=== PATIENT | female | born 1985 | race African-American/Black ===

== ENCOUNTER 2016-06-19 17:56 | Emergency (ER) | payer MEDICAID, OTHER ==
[~2016-06-19] VITALS: Ht 180.3 cm; Wt 84.7 kg
[~2016-06-19 17:56] MED LIST: ASPI325T PO; BACT800T5 PO; CARV3.125 PO; CEPH500C3 PO; CLIN150 PO; CLOP75 PO; HCTZ25 PO; HYDR-3533 PO; LISI20 PO; NITR.4 SL; TRAM50 PO; ZOFR4TAB3 SL
[2016-06-19 18:00] VITALS: BP 212/96; PULSE 96; RESP 18; TEMP 99.5; O2SAT 96
[2016-06-19] MEDS ORDERED: SODIUM CHLOR 0.9% 1000 ML INJ 1,000 ML IV ONE (18:45)
[2016-06-19 18:49] VITALS: O2SAT 99
--- NOTE | 2016-06-19 18:52 | PD ---
HPI Chief Complaint: Cold / Flu Symptoms Time Seen by Provider: 18:35 Travel History International Travel<30 days: No Contact w/Intl Traveler<30days: No Traveled to known affect area: No History of Present Illness HPI 31-year-old female complains of headache, coughing congestion, body ache, fever chills and shortness of breath. Patient states the symptoms started 2 days ago. Patient states that headache is aching headache diffuse over the head. Patient denies any visual change. Patient denies any neck pain. Patient denies any chest pain. Patient states the cough is persistent and mildly productive. Patient states that she has nausea and poor appetite but no vomiting or diarrhea. Patient denies abdominal pain. Patient denies any dysuria or frequency. Patient denies any chance of being . PFSH Past Medical History Heart Rhythm Problems: Yes ("IRREGULAR HEART BEAT") Cancer: Yes Cardiac Catheterization: No Cardiovascular Problems: Yes (HTN, [place], STENTS X 2) High Cholesterol: No Congestive Heart Failure: No Diminished Hearing: No Endocrine: No Gastrointestinal Disorders: Yes GERD: Yes Headaches: Yes Hypertension: Yes (05/31 TAKEN OFF HTN MEDS TO SEE HOW SHE DOES) Immune Disorder: No Musculoskeletal: No Neurologic: No Psychiatric: No Respiratory: Yes (BRONCHITIS) Integumentary: Yes (RECURRING SKIN ABSCESSES) Immunizations Current: Yes Migraines: Yes Myocardial Infarction: Yes : 2 Para: 1 Miscarriage: 0 : 1 Dilation and Curettage (D&C): Yes Past Surgical History Abdominal Surgery: Yes ( 04/18/06) Body Medical Devices: BRONCHITIS Section: Yes Cholecystectomy: Yes Coronary Artery Bypass Graft: No Coronary Stent: Yes (x 2 10/2013) Gynecologic Surgery: Yes (D&C 11/2007) Social History Alcohol Use: Yes (SOCIAL) Tobacco Use: Yes (3 DAILY) Substance Use: Yes (OCC MARIJUANA) Allergies-Medications (Allergen,Severity, Reaction): Coded Allergies: No Known Allergies (Verified , 06/19/16) Reported Meds & Prescriptions Reported Meds & Active Scripts Active Cleocin (Clindamycin HCl) 150 Mg Cap 300 Mg PO Q6 10 Days Zofran ODT (Ondansetron HCl) 4 Mg Tab 4 Mg SL Q6H PRN FOR NAUSEA/VOMITING Lortab 5 mg/325 mg (Hydrocodone/Acetaminophen 5 mg/325 mg) 1 Tab 1 Tab PO Q6H PRN Cleocin (Clindamycin HCl) 150 Mg Cap 300 Mg PO Q6 10 Days Lortab 5 mg/325 mg (Hydrocodone/Acetaminophen 5 mg/325 mg) 1 Tab 1 Tab PO Q6H PRN Ultram (Tramadol HCl) 50 Mg Tab 1 Tab PO Q6 PRN FOR PAIN Keflex (Cephalexin Monohydrate) 500 Mg Cap 500 Mg PO QID 10 Days Bactrim DS (Sulfamethoxazole-Trimethoprim DS) 1 Tab Tab 1 Tab PO BID 10 Days Plavix (Clopidogrel Bisulfate) 75 Mg Tab 75 Mg PO DAILY Prinivil 20 mg (Lisinopril) 20 Mg Tab 20 Mg PO DAILY 30 Days Hydrodiuril (Hydrochlorothiazide) 25 Mg Tab 25 Mg PO DAILY 30 Days Coreg 3.125 mg (Carvedilol) 3.125 Mg Tab 3.125 Mg PO BID 30 Days Aspirin 325 Mg Tab (Aspirin) 325 Mg Tab 325 Mg PO DAILY 365 Days Nitroglycerin 0.4 Mg Subl 0.4 Mg SL DIRECTED PRN use 0.4 mg under the tongue q 5 minutes as needed for chest pain. Go to ER for chest pain unrelieved after 5 minutes. Review of Systems General / Constitutional: No: Fever Eyes: No: Visual changes HENT: Positive: Headaches Cardiovascular: No: Chest Pain or Discomfort Respiratory: Positive: Cough, Shortness of Breath Gastrointestinal: Positive: Nausea, No: Abdominal Pain Genitourinary: No: Dysuria Musculoskeletal: No: Pain Skin: No Rash Neurologic: No: Weakness Psychiatric: No: Depression Endocrine: No: Polydipsia Hematologic/Lymphatic: No: Easy Bruising Physical Exam Narrative GENERAL: Well-nourished, well-developed patient. SKIN: Warm and dry. HEAD: Normocephalic. EYES: No scleral icterus. No injection or drainage. NECK: Supple, trachea midline. No JVD or lymphadenopathy. CARDIOVASCULAR: Regular rate and rhythm without murmurs, gallops, or rubs. RESPIRATORY: Breath sounds equal bilaterally. No accessory muscle use. GASTROINTESTINAL: Abdomen soft, non-tender, nondistended. MUSCULOSKELETAL: No cyanosis, or edema. BACK: Nontender without obvious deformity. No CVA tenderness. Neurologic exam normal. Data Data Last Documented VS Vital Signs Date Time Temp Pulse Resp B/P Pulse Ox O2 Delivery O2 Flow Rate FiO2 06/19/16 18:00 99.5 96 18 212/96 96 [facility] Medical Decision Making Medical Screen Exam Complete: Yes Emergency Medical Condition: Yes Differential Diagnosis Differential diagnosis including viral syndrome, bronchitis, pneumonia, dehydration, electrolyte imbalance. Narrative Course 31-year-old female with headache, fever chills, coughing congestion, shortness of breath. Normal saline solution 1 L IV bolus. Barron Bhatti MD Jun 19, 2016 18:52
--- NOTE | 2016-06-19 19:19 | PD ---
Physical Exam Narrative General: The patient is a well-developed well-nourished female in no acute distress Head and Neck exam: Head is normocephalic atraumatic. Eyes: EOMI, pupils are equal round and reactive to light. Nose: Midline septum with erythematous edematous nasal mucosa and a yellow nasal discharge. Mouth: Dentition unremarkable. Moist mucus membranes. Posterior oropharynx is mildly erythematous. No tonsillar hypertrophy. Uvula midline. Airway patent. Neck: No palpable lymphadenopathy. No nuchal rigidity. No thyromegaly. Cardiovascular: Regular rate and rhythm without murmurs, gallops, or rubs. Lungs: Soft expiratory wheezes are audible in the left lung field greater than the right. No rhonchi or crackles. The patient has an occasional dry cough noted on exam. Abdomen: Soft, without tenderness to palpation in all 4 quadrants of the abdomen. No guarding, rebound, or rigidity. Normal bowel sounds are audible. Extremities: No clubbing, cyanosis, or edema. 2+ pulses in all 4 extremities. No calf tenderness on palpation. Neurologic Exam: Grossly nonfocal. Skin Exam: No rash noted. Intact skin that is warm and dry. Data Data Last Documented VS Vital Signs Date Time Temp Pulse Resp B/P Pulse Ox O2 Delivery O2 Flow Rate FiO2 06/19/16 19:58 92 18 183/78 97 Room Air 06/19/16 18:00 99.5 Orders Complete Blood Count With Diff (06/19/16 18:40) Comprehensive Metabolic Panel (06/19/16 18:40) Urinalysis - C+S If Indicated (06/19/16 18:40) Influenzae A/B Antigen (06/19/16 18:40) Chest, Single Ap (06/19/16 18:40) Iv Access Insert/Monitor (06/19/16 18:40) Ecg Monitoring (06/19/16 18:40) Oximetry (06/19/16 18:40) Sodium Chlor 0.9% 1000 Ml Inj (Ns 1000 M (06/19/16 18:45) Albuterol-Ipratropium Neb (Duoneb Neb) (06/19/16 19:30) Potassium Chloride (Kcl) (06/19/16 22:15) Labs Laboratory Tests Test 06/19/16 06/19/16 19:50 20:47 Urine Color YELLOW Urine Turbidity CLEAR Urine pH 7.5 Urine Specific [place] 1.015 Urine Protein NEG mg/dL Urine Glucose (UA) NEG mg/dL Urine Ketones NEG mg/dL Urine Occult Blood MOD Urine Nitrite NEG Urine Bilirubin NEG Urine Urobilinogen 2.0 MG/DL Urine Leukocyte Esterase NEG Urine RBC 100 /hpf Urine WBC LESS THAN 1 /hpf Urine Squamous Epithelial 1 /hpf Cells Urine Mucus FEW /lpf Microscopic Urinalysis Comment CULT NOT INDICATED White Blood Count 8.9 TH/MM3 Red Blood Count 3.74 MIL/MM3 Hemoglobin 12.2 GM/DL Hematocrit 34.6 % Mean Corpuscular Volume 92.7 FL Mean Corpuscular Hemoglobin 32.7 PG Mean Corpuscular Hemoglobin 35.3 % Concent Red Cell Distribution Width 12.7 % Platelet Count 248 TH/MM3 Mean Platelet Volume 8.3 FL Neutrophils (%) (Auto) 48.0 % Lymphocytes (%) (Auto) 36.0 % Monocytes (%) (Auto) 13.0 % Eosinophils (%) (Auto) 2.2 % Basophils (%) (Auto) 0.8 % Neutrophils # (Auto) 4.3 TH/MM3 Lymphocytes # (Auto) 3.2 TH/MM3 Monocytes # (Auto) 1.2 TH/MM3 Eosinophils # (Auto) 0.2 TH/MM3 Basophils # (Auto) 0.1 TH/MM3 CBC Comment DIFF FINAL Differential Comment Sodium Level 141 MEQ/L Potassium Level 3.1 MEQ/L Chloride Level 108 MEQ/L Carbon Dioxide Level 24.6 MEQ/L Anion Gap 8 MEQ/L Blood Urea Nitrogen 6 MG/DL Creatinine 0.90 MG/DL Estimat Glomerular Filtration 88 ML/MIN Rate Random Glucose 99 MG/DL Calcium Level 8.0 MG/DL Total Bilirubin 0.4 MG/DL Aspartate Amino Transf 10 U/L (AST/SGOT) Alanine Aminotransferase 15 U/L (ALT/SGPT) Alkaline Phosphatase 40 U/L Total Protein 6.4 GM/DL Albumin 3.5 GM/DL [facility] Medical Record Reviewed: Yes Supervised Visit with LAURA: No Interpretation(s) Laboratory Tests Test 06/19/16 06/19/16 19:50 20:47 Urine Color YELLOW Urine Turbidity CLEAR Urine pH 7.5 Urine Specific [place] 1.015 Urine Protein NEG mg/dL Urine Glucose (UA) NEG mg/dL Urine Ketones NEG mg/dL Urine Occult Blood MOD Urine Nitrite NEG Urine Bilirubin NEG Urine Urobilinogen 2.0 MG/DL Urine Leukocyte Esterase NEG Urine RBC 100 /hpf Urine WBC LESS THAN 1 /hpf Urine Squamous Epithelial 1 /hpf Cells Urine Mucus FEW /lpf Microscopic Urinalysis Comment CULT NOT INDICATED White Blood Count 8.9 TH/MM3 Red Blood Count 3.74 MIL/MM3 Hemoglobin 12.2 GM/DL Hematocrit 34.6 % Mean Corpuscular Volume 92.7 FL Mean Corpuscular Hemoglobin 32.7 PG Mean Corpuscular Hemoglobin 35.3 % Concent Red Cell Distribution Width 12.7 % Platelet Count 248 TH/MM3 Mean Platelet Volume 8.3 FL Neutrophils (%) (Auto) 48.0 % Lymphocytes (%) (Auto) 36.0 % Monocytes (%) (Auto) 13.0 % Eosinophils (%) (Auto) 2.2 % Basophils (%) (Auto) 0.8 % Neutrophils # (Auto) 4.3 TH/MM3 Lymphocytes # (Auto) 3.2 TH/MM3 Monocytes # (Auto) 1.2 TH/MM3 Eosinophils # (Auto) 0.2 TH/MM3 Basophils # (Auto) 0.1 TH/MM3 CBC Comment DIFF FINAL Differential Comment Sodium Level 141 MEQ/L Potassium Level 3.1 MEQ/L Chloride Level 108 MEQ/L Carbon Dioxide Level 24.6 MEQ/L Anion Gap 8 MEQ/L Blood Urea Nitrogen 6 MG/DL Creatinine 0.90 MG/DL Estimat Glomerular Filtration 88 ML/MIN Rate Random Glucose 99 MG/DL Calcium Level 8.0 MG/DL Total Bilirubin 0.4 MG/DL Aspartate Amino Transf 10 U/L (AST/SGOT) Alanine Aminotransferase 15 U/L (ALT/SGPT) Alkaline Phosphatase 40 U/L Total Protein 6.4 GM/DL Albumin 3.5 GM/DL Last Impressions Chest X-Ray 06/19/16 1840 Signed Impressions: Service Date/Time: Sunday, June 19, 2016 19:16 - CONCLUSION: No acute disease. Lev Rowe MD Differential Diagnosis Influenza, versus viral syndrome, versus bronchitis, versus bacterial sinusitis Narrative Course During the course of the patients emergency department visit, the patients history, examination, and differential diagnosis were reviewed with the patient. The patient had IV access obtained and blood work sent for analysis. The patient was initially evaluated by Dr. Bhatti. Please see his complete history and physical. The patient was provided normal saline a 1 L IV fluid bolus. The patient was given a DuoNeb 1. The patients laboratory studies were reviewed and remarkable for an influenza antigen a and B that was negative. CBC shows a white count of 8.9, hemoglobin 12.2, platelets 248 with 13 monocytes, CMP is remarkable for potassium of 3.1 which was supplemented orally. Urinalysis showed no acute abnormality. Chest x -ray showed no acute abnormality. The patient is resting comfortably and feels better, is alert and in no distress. The patients results and examination findings were discussed with the patient. The repeat examination is unremarkable and benign. The history, exam, diagnostic testing, and current condition do not suggest any significant pathology to warrant further testing, continued ED treatment, admission, or surgical evaluation at this point. The vital signs have been stable. The patient does not have uncontrollable pain, intractable vomiting, or other significant symptoms. The patient's condition is stable and appropriate for discharge. The patient will pursue further outpatient evaluation with a primary care physician or other designated or consulting physician as indicated in the discharge instructions. The patient expressed understanding and was agreeable with this plan. Diagnosis Primary Impression: Bronchitis Additional Impression: Wheezing Referrals: Primary Care Physician 2 days Patient Instructions: Acute Bronchitis (ED), General Instructions, Reactive Airways Disease (ED) Med/Other Pt SpecificInfo: Prescription(s) given Scripts Doxycycline Hyclate 100 Mg [id number] Mg PO BID #20 CAP Ref 0 Prov:Mayra Bonilla MD 06/19/16 Albuterol Powder Inh (Proair Respiclick Inh)90 Mcg/Act Aerp2 Puff INH Q6H PRN ( SHORTNESS OF BREATH) #1 INHALER Ref 0 Prov:Mayra Bonilla MD 06/19/16 Disposition: 01 DISCHARGE HOME Condition: Stable Mayra Bonilla MD Jun 19, 2016 19:19
[2016-06-19] MEDS ORDERED: ALBU1AER5 INH (19:26)
--- NOTE | 2016-06-19 19:27 | RADRPT ---
EXAM DATE/TIME: 06/19/2016 19:16 [facility] COMPARISON: CHEST SINGLE AP, December 08, 2013, 21:22. INDICATIONS : Cough, congestion, fever, shortness of breath. MEDICAL HISTORY : Hypertension. Myocardial infarction. Smoker. SURGICAL HISTORY : Coronary artery stent. ENCOUNTER: Initial ACUITY: 3 days PAIN SCORE: 2/10 LOCATION: Bilateral chest FINDINGS: A single view of the chest demonstrates the lungs to be symmetrically aerated without evidence of mas s, infiltrate or effusion. The cardiomediastinal contours are unremarkable. Osseous structures are intact. CONCLUSION: No acute disease. eLv Rowe MD on June 19, 2016 at 19:25 Board Certified Radiologist. This report was verified electronically.
[2016-06-19] MEDS ORDERED: RESP: ALBUTEROL 2.5 MG/IPRATROPIUM 0.5 MG NEB (SCH) NEB ONE (19:30)
[2016-06-19 19:58] VITALS: BP 183/78; PULSE 92; RESP 18; O2SAT 97
[2016-06-19] MEDS ORDERED: DOXY100C PO (20:44)
[2016-06-19 20:48] LABS: BLOOD, URINE MOD (NEG); COMMENT (UR) CULT NOT INDICATED; CULTURE IF INDICATED CULT NOT INDICATED; GLUCOSE,URINE NEG (NEG); KETONE, URINE NEG (NEG); MUCUS URINE FEW /lpf (OCC); NITRITE,URINE NEG (NEG); PH, URINE 7.5 (5.0-8.5); SQUAMOUS EPITHELIAL CELL URINE 1 /hpf (0-5); URINE COLOR YELLOW (YELLW/STRAW)
[2016-06-19 21:23] LABS: AUTOMATED NEUTROPHIL # 4.3 TH/MM3 (1.8-7.7); BASOPHIL # 0.1 TH/MM3 (0-0.2); BASOPHIL % 0.8 % (0.0-2.0); EOSINOPHIL # 0.2 TH/MM3 (0-0.4); EOSINOPHIL % 2.2 % (0.0-4.0); HEMATOCRIT 34.6 % (35.0-46.0); HEMO FLAGS DIFF FINAL; LYMPHOCYTE # 3.2 TH/MM3 (1.0-4.8); MEAN CELL VOLUME 92.7 FL (80.0-100.0); MEAN CORPUSCULAR HEMOGLOBIN 32.7 PG (27.0-34.0); MEAN CORPUSCULAR HGB CONC 35.3 % (32.0-36.0); PLATELET COUNT 248 TH/MM3 (150-450); RED BLOOD COUNT 3.74 MIL/MM3 (4.00-5.30); RED CELL DISTRIBUTION WIDTH 12.7 % (11.6-17.2); WHITE BLOOD COUNT 8.9 TH/MM3 (4.0-11.0)
[2016-06-19 21:50] LABS: ANION GAP 8 MEQ/L (5-15); AST (GOT) 10 U/L (15-37); BICARBONATE 24.6 MEQ/L (21.0-32.0); BLOOD UREA NITROGEN 6 MG/DL (7-18); CHLORIDE 108 MEQ/L (98-107); GLOMERULAR FILTRATION RATE 88 ML/MIN (>89); POTASSIUM 3.1 MEQ/L (3.5-5.1); SODIUM (NA) 141 MEQ/L (136-145)
[2016-06-19 21:53] LABS: ALKALINE PHOSPHATASE 40 U/L (45-117); ALT (GPT) 15 U/L (10-53); TOTAL BILIRUBIN ADULT 0.4 MG/DL (0.2-1.0)
[2016-06-19] MEDS ORDERED: POTASSIUM CHLORIDE 20 MEQ CONTROLLED RELEASE TAB PO ONE (22:15)
[2016-06-19 22:20] VITALS: BP 178/89
== END 2016-06-19 22:21 | disposition home or self-care (01) ==
LOC: NEPE 17:56
DX: J40 Bronchitis, not specified as acute or chronic (principal); R51 Headache; Z72.0 Tobacco use
CPT/HCPCS: 71010; 80053; 81001; 85025; 87804; 94664; 96360; 99285; J7030

== ENCOUNTER 2016-07-20 14:54 | Emergency (ER) | payer OTHER ==
[~2016-07-20] VITALS: Ht 180.3 cm; Wt 75.0 kg
[~2016-07-20 14:54] MED LIST changes: +ALBU1AER5 INH; -ASPI325T PO; -BACT800T5 PO; -CARV3.125 PO; -CEPH500C3 PO; -CLIN150 PO; -CLOP75 PO; +DOXY100C PO; -HCTZ25 PO; -HYDR-3533 PO; -LISI20 PO; -NITR.4 SL; -TRAM50 PO; -ZOFR4TAB3 SL
[2016-07-20 14:55] VITALS: BP 164/78; PULSE 106; RESP 20; TEMP 98.8; O2SAT 98
== END 2016-07-20 15:45 | disposition left against medical advice (07) ==
LOC: NED 14:54
DX: Z53.21 Procedure and treatment not carried out due to patient leaving prior to being seen by health care provider (principal)
CPT/HCPCS: 99281

== ENCOUNTER 2016-08-26 20:08 | Emergency (ER) | payer OTHER ==
[2016-08-26 20:10] VITALS: BP 210/91; PULSE 66; RESP 16; TEMP 98.9; O2SAT 99
--- NOTE | 2016-08-26 21:23 | PD ---
HPI Chief Complaint: Skin Problem Time Seen by Provider: 21:23 Travel History International Travel<30 days: No Contact w/Intl Traveler<30days: No Traveled to known affect area: No History of Present Illness HPI 31-year-old female presents to the emergency department for evaluation of pain and swelling in her left axilla. Patient states she has history of recurrent abscess in her left axilla. She has not been diagnosed with any particular reason why but states this has happened several times since having her child. She states she noticed over the last week some tenderness. She has a large amount of scar tissue and she is concerned because there is no erythema going down her side and onto the lateral aspect of her breast. He is unable to get comfortable. She denies any fever or chills. Pain is an 8 out of 10, exacerbated by movement or touch. She has no other symptoms to report. PFSH Past Medical History Heart Rhythm Problems: Yes ("IRREGULAR HEART BEAT") Cancer: Yes Cardiac Catheterization: No Cardiovascular Problems: Yes (two stents ,mi) High Cholesterol: No Congestive Heart Failure: No Diminished Hearing: No Endocrine: No Gastrointestinal Disorders: Yes GERD: Yes Headaches: Yes Hypertension: Yes Immune Disorder: No Musculoskeletal: No Neurologic: No Psychiatric: No Respiratory: Yes (ASTHMA) Integumentary: Yes (RECURRING SKIN ABSCESSES) Immunizations Current: Yes Migraines: Yes Myocardial Infarction: Yes ?: Not : 2 Para: 1 Miscarriage: 0 : 1 Dilation and Curettage (D&C): Yes Past Surgical History Abdominal Surgery: Yes ( 04/18/06) Body Medical Devices: BRONCHITIS Section: Yes Cholecystectomy: Yes Coronary Artery Bypass Graft: No Coronary Stent: Yes (x 2 10/2013) Gynecologic Surgery: Yes (D&C 11/2007) Other Surgery: Yes Social History Alcohol Use: Yes (SOCIAL) Tobacco Use: Yes (3 DAILY) Substance Use: No Allergies-Medications (Allergen,Severity, Reaction): Coded Allergies: Aspirin (Verified Allergy, Severe, Hives, 08/26/16) Reported Meds & Prescriptions Reported Meds & Active Scripts Active Lortab (Hydrocodone-Acetaminophen) 5-325 Mg Tab 1 Tab PO Q6H PRN Keflex (Cephalexin) 500 Mg Cap 500 Mg PO Q6H 5 Days Bactrim DS (Sulfamethoxazole-Trimethoprim) 800-160 Mg Tab 1 Tab PO BID Doxycycline Hyclate 100 Mg Cap 100 Mg PO BID Proair Respiclick Inh (Albuterol Sulfate) 90 Mcg/Act Aerp 2 Puff INH Q6H PRN Review of Systems Except as stated in HPI: all other systems reviewed are Neg Physical Exam Narrative GENERAL: Well-nourished, well-developed female patient, ambulatory no acute distress SKIN: Focused skin assessment warm/dry there is a 4 cm x 3 cm area of scar tissue in the middle of the left axilla. It is surrounded by erythema. There is an indurated area surrounding it measures about 3 cm in diameter. It is fluctuant but there is no pointing or drainage. There is a zone of inflammation around it but no lymphangitis. HEAD: Normocephalic. EYES: No scleral icterus. No injection or drainage. NECK: Supple, trachea midline. No JVD or lymphadenopathy. CARDIOVASCULAR: Regular rate and rhythm without murmurs, gallops, or rubs. RESPIRATORY: Breath sounds equal bilaterally. No accessory muscle use. GASTROINTESTINAL: Abdomen soft, non-tender, nondistended. MUSCULOSKELETAL: No cyanosis, or edema. BACK: Nontender without obvious deformity. No CVA tenderness. Data Data Last Documented VS Vital Signs Date Time Temp Pulse Resp B/P Pulse Ox O2 Delivery O2 Flow Rate FiO2 08/26/16 22:00 201/98 08/26/16 20:10 98.9 66 16 99 Room Air Orders Ketorolac Inj (Toradol Inj) (08/26/16 21:30) Us Soft Tissue (08/26/16 ) Wound Culture And Gram Stain (08/26/16 23:04) MDM Medical Decision Making Medical Screen Exam Complete: Yes Emergency Medical Condition: Yes Medical Record Reviewed: Yes Differential Diagnosis Abscess versus hidradenitis versus cellulitis versus neoplasm Narrative Course 31-year-old female presents to emergency department for evaluation of an abscess in her left axilla. This is recurrent. Patient does have cellulitis extending to the lateral breast. There is significant scar tissue in the left axilla. Ultrasound is ordered for further evaluation of this and identifies an abscess. I&D is complete. Patient will be started on oral antibiotics and is instructed to follow-up with a primary care provider. She agrees to return immediately with any acute worsening of symptoms. Last Impressions Soft Tissue Ultrasound 08/26/16 0000 Signed Impressions: Service Date/Time: Friday, August 26, 2016 22:29 - CONCLUSION: 4.2 cm abscess. Lencho Araujo Jr., MD Procedures Procedure Narrative INCISION AND DRAINAGE OF ABSCESS: The area was prepped and was sterilely draped. Topical ethyl chloride was used to anesthetize the area. The area was properly anesthetized. A number 11 scalpel was used to make a 1-cm incision across the area of the abscess. Cultures were obtained. The abscess was drained an irrigated with normal saline. Quarter inch iodoform packing was placed in the wound. Sterile dressing applied. Patient advised to have packing removed in two days. Diagnosis Primary Impression: Abscess of axilla, left Additional Impression: Hypertension Qualified Code: I10 - Essential hypertension Referrals: Primary Care Physician Patient Instructions: Abscess Incision and Drainage (ED), Chronic Hypertension (ED), General Instructions Additional Instructions: Warm compresses to the affected area Remove packing in 2 days. This can be done in the emergency department or at your primary care provider's office Start Antibiotic and take it until it is all gone Return immediately with any acute worsening of symptoms Med/Other Pt SpecificInfo: Prescription(s) given Scripts Hydrocodone-Acetaminophen (Lortab)5-325 Mg Tab1 Tab PO Q6H PRN (PAIN GREATER THAN 6) #15 TAB Ref 0 Prov:Mayra Bonilla MD 08/26/16 Cephalexin (Keflex)500 Mg [id number] Mg PO Q6H 5 Days Ref 0 Prov:Vivian Yo 08/26/16 Sulfamethoxazole-Trimethoprim (Bactrim DS)800-160 Mg Tab1 Tab PO BID #20 TAB Ref 0 Prov:Vivian Yo 08/26/16 Disposition: 01 DISCHARGE HOME Condition: Stable Vivian Yo August 26, 2016 21:23
[2016-08-26] MEDS ORDERED: KETOROLAC TROMETHAMINE 60 MG/2 ML (IM) VIAL IM ONE (21:30)
[2016-08-26 22:00] VITALS: BP 201/98
[2016-08-26] MEDS ORDERED: CEPH-460 PO (23:03)
[2016-08-26] MEDS ORDERED: BACT800T5 PO (23:03)
[2016-08-26] MEDS ORDERED: HYDR-3533 PO (23:04)
--- NOTE | 2016-08-26 23:40 | RADRPT ---
EXAM DATE/TIME: 08/26/2016 22:29 [facility] COMPARISON: No previous studies available for comparison. INDICATIONS : Left arm swelling and pain. MEDICAL HISTORY : Gastroesophageal reflux disease. Hypertension. Myocardial infarction. Migraines. Irregular heart beat . . Asthma. Abscess. SURGICAL HISTORY : Cholecystectomy. section. Coronary artery stent. Dilation and curettage. ENCOUNTER: Initial ACUITY: 1 week PAIN SCORE: 9/10 LOCATION: Left axilla. AREA EVALUATED: Left axilla. FINDINGS: There is a mildly complex fluid filled structure involving left axilla. This measures 4.2 x 2.5 x 2.3 cm. There is some hyperemia surrounding it. CONCLUSION: 4.2 cm abscess. Lencho Araujo Jr., MD on August 26, 2016 at 23:37 Board Certified Radiologist. This report was verified electronically.
== END 2016-08-26 23:30 | disposition home or self-care (01) ==
LOC: NEPK 20:08
DX: L02.412 Cutaneous abscess of left axilla (principal); I10 Essential (primary) hypertension; I49.9 Cardiac arrhythmia, unspecified; I25.2 Old myocardial infarction; Z95.5 Presence of coronary angioplasty implant and graft; Z72.0 Tobacco use
CPT/HCPCS: 10061; 76999; 86403; 87070; 96372; 99283; J1885; 87205

== ENCOUNTER 2017-01-30 08:26 | Emergency (ER) | payer OTHER ==
[~2017-01-30] VITALS: Ht 180.3 cm; Wt 70.0 kg
[~2017-01-30 08:26] MED LIST changes: +BACT800T5 PO; +CEPH-460 PO; +HYDR-3533 PO
[2017-01-30 08:28] VITALS: BP 179/84; PULSE 97; RESP 14; TEMP 98.9; O2SAT 99
[2017-01-30] MEDS ORDERED: BACT800T5 PO (08:45)
[2017-01-30] MEDS ORDERED: ACETAMINOPHEN 500 MG CPLT PO ONE (08:45)
[2017-01-30] MEDS ORDERED: IBUP800T23 PO (08:45)
[2017-01-30] MEDS ORDERED: SULFAMETHOXAZOLE-TRIMETHOPRIM DS 800-160 MG TAB PO ONE (08:45)
[2017-01-30] MEDS ORDERED: IBUPROFEN 800 MG TAB PO ONE (08:45)
[2017-01-30] MEDS ORDERED: MAPA500T13 PO (08:45)
--- NOTE | 2017-01-30 08:49 | PD ---
HPI Chief Complaint: Lump, Cyst, Hernia Time Seen by Provider: 08:36 Travel History International Travel<30 days: No Contact w/Intl Traveler<30days: No Traveled to known affect area: No History of Present Illness HPI 31-year-old Afro-German female presents to the emergency department with several day history of right axillary areas of swollen erythematous tender lesions with spontaneous drainage this morning. Patient states the pain is 8/ 10. She denies fever, chills, or other symptoms. Patient has had similar symptoms in the past. She states she is allergic to no medications (documented to aspirin allergy. PFSH Past Medical History Hx Anticoagulant Therapy: Yes Heart Rhythm Problems: Yes ("IRREGULAR HEART BEAT") Cancer: Yes Cardiac Catheterization: No Cardiovascular Problems: Yes ([place], [place] ) High Cholesterol: No Congestive Heart Failure: No Diminished Hearing: No Endocrine: No Gastrointestinal Disorders: Yes GERD: Yes Headaches: Yes Hypertension: Yes Immune Disorder: No Musculoskeletal: No Neurologic: No Psychiatric: No Respiratory: Yes (ASTHMA) Integumentary: Yes (RECURRING SKIN ABSCESSES) Immunizations Current: Yes Migraines: Yes Myocardial Infarction: Yes ?: Not LMP: CURRENT : 2 Para: 1 Miscarriage: 0 : 1 Dilation and Curettage (D&C): Yes Past Surgical History Abdominal Surgery: Yes ( 04/18/06) Body Medical Devices: BRONCHITIS Section: Yes Cholecystectomy: Yes Coronary Artery Bypass Graft: No Coronary Stent: Yes (x 2 10/2013) Gynecologic Surgery: Yes (D&C 11/2007) Other Surgery: Yes Social History Alcohol Use: Yes (SOCIAL) Tobacco Use: Yes (3PPD) Substance Use: No Allergies-Medications (Allergen,Severity, Reaction): Coded Allergies: aspirin (Unverified Allergy, Severe, Hives, 12/04/16) Reported Meds & Prescriptions Reported Meds & Active Scripts Active Mapap Extra Strength (Acetaminophen) 500 Mg Tab 1,000 Mg PO Q4-6H PRN Ibuprofen 800 Mg Tab 800 Mg PO Q8H PRN Bactrim DS (Sulfamethoxazole-Trimethoprim) 800-160 Mg Tab 1 Tab PO BID Lortab (Hydrocodone-Acetaminophen) 5-325 Mg Tab 1 Tab PO Q6H PRN Keflex (Cephalexin) 500 Mg Cap 500 Mg PO Q6H 5 Days Bactrim DS (Sulfamethoxazole-Trimethoprim) 800-160 Mg Tab 1 Tab PO BID Doxycycline Hyclate 100 Mg Cap 100 Mg PO BID Proair Respiclick Inh (Albuterol Sulfate) 90 Mcg/Act Aerp 2 Puff INH Q6H PRN Review of Systems Except as stated in HPI: all other systems reviewed are Neg General / Constitutional: No: Fever, Chills Eyes: No: Visual changes HENT: No: Headaches Cardiovascular: No: Chest Pain or Discomfort Respiratory: No: Shortness of Breath Gastrointestinal: No: Abdominal Pain Genitourinary: No: Dysuria Musculoskeletal: No: Pain Skin: Positive Lesions, No Rash Neurologic: No: Weakness Psychiatric: No: Depression Endocrine: No: Polydipsia Hematologic/Lymphatic: No: Easy Bruising Physical Exam Narrative GENERAL: Patient appears in mild to moderate distress. SKIN: Warm and dry. Normal color. Normal turgor. Patient has indurated tender areas to the right axillary region without palpable deep abscess. There is no expressible drainage at this time. Dressing that the patient had on did have some bloody drainage on it. No significant lymphadenopathy or induration is noted. HEAD: Atraumatic. Normocephalic. EYES: Pupils equal and round. No scleral icterus. No injection or drainage. ENT: No nasal bleeding or discharge. Mucous membranes pink and moist. NECK: Trachea midline. No JVD. CARDIOVASCULAR: Regular rate and rhythm. RESPIRATORY: No accessory muscle use. Clear to auscultation. Breath sounds equal bilaterally. MUSCULOSKELETAL: Extremities without clubbing, cyanosis, or edema. No obvious deformities. NEUROLOGICAL: Awake and alert. No obvious cranial nerve deficits. Motor grossly within normal limits. Five out of 5 muscle strength in the arms and legs. Normal speech. PSYCHIATRIC: Appropriate mood and affect; insight and judgment normal. Data Data Last Documented VS Vital Signs Date Time Temp Pulse Resp B/P (MAP) Pulse Ox O2 Delivery O2 Flow Rate FiO2 01/30/17 08:55 01/30/17 08:28 98.9 97 14 99 Orders Orders Sulfamet-Trimeth Ds 800-160 Mg (Bactrim (01/30/17 08:45) Ibuprofen (Motrin) (01/30/17 08:45) Acetaminophen (Tylenol) (01/30/17 08:45) Ed Discharge Order (01/30/17 08:43) MDM Medical Decision Making Medical Screen Exam Complete: Yes Emergency Medical Condition: Yes Medical Record Reviewed: Yes Differential Diagnosis Folliculitis. Cellulitis. Early abscess. Narrative Course No Drainable abscess appreciated this time. Patient is placed given Bactrim DS twice a day 7 days. Patient is given ibuprofen 800 mg 3 times a day #30. Patient is given acetaminophen 500 mg 2 tabs every 6 hours #60. Patient is use hot compresses to the area frequently as discussed. Patient follow with her primary care physician or return here if symptoms do not improve or worsen as needed. Work note for today is given. Diagnosis Primary Impression: Folliculitis barbae Referrals: [facility] Patient Instructions: Cellulitis (ED), Folliculitis (ED), General Instructions Additional Instructions: No Drainable abscess appreciated this time. Patient is placed given Bactrim DS twice a day 7 days. Patient is given ibuprofen 800 mg 3 times a day #30. Patient is given acetaminophen 500 mg 2 tabs every 6 hours #60. Patient is use hot compresses to the area frequently as discussed. Patient follow with her primary care physician or return here if symptoms do not improve or worsen as needed. Work note for today is given. Med/Other Pt SpecificInfo: Prescription(s) given Scripts Acetaminophen (Mapap Extra Strength) 500 Mg Tab 1000 MG PO Q4-6H Y for PAIN, #60 TAB 0 Refills Prov: Alma Delia Mendoza MD 01/30/17 Ibuprofen (Ibuprofen) 800 Mg Tab 800 MG PO Q8H Y for Pain/Inflammation, #30 TAB 0 Refills Prov: Alma Delia Mendoza MD 01/30/17 Sulfamethoxazole-Trimethoprim (Bactrim DS) 800-160 Mg Tab 1 TAB PO BID for Infection, #14 TAB 0 Refills Prov: Alma Delia Mendoza MD 01/30/17 Disposition: 01 DISCHARGE HOME Condition: Stable Diomedes Velasquez Jan 30, 2017 08:49
== END 2017-01-30 09:24 | disposition home or self-care (01) ==
LOC: NEPD 08:26
DX: L73.8 Other specified follicular disorders (principal); F17.200 Nicotine dependence, unspecified, uncomplicated
CPT/HCPCS: 99283

== ENCOUNTER 2017-02-23 22:46 | Emergency (ER) | payer SELFPAY ==
[~2017-02-23] VITALS: Ht 180.3 cm; Wt 80.0 kg
[~2017-02-23 22:46] MED LIST changes: +IBUP1TAB7 PO; +MAPA500T13 PO
[2017-02-23 22:48] VITALS: BP 237/99; PULSE 79; RESP 16; TEMP 98.5; O2SAT 100
[2017-02-24] MEDS ORDERED: DOXY100C PO (01:04)
[2017-02-24] MEDS ORDERED: BACT800T5 PO (01:04)
--- NOTE | 2017-02-24 01:11 | PD ---
HPI Chief Complaint: Skin Problem Time Seen by Provider: 00:51 Travel History International Travel<30 days: No Contact w/Intl Traveler<30days: No Traveled to known affect area: No History of Present Illness HPI 31-year-old black female presents to emergency Department with complaints of recurrent infections to her right axilla. She states that she had opened and drained several lesions but still has pressure and pain. Patient has had a history of hidradenitis. She denies any fever or chills. Pain is moderate. No alleviating factors. No exacerbating factors. PFSH Past Medical History Hx Anticoagulant Therapy: Yes Heart Rhythm Problems: Yes ("IRREGULAR HEART BEAT") Cancer: Yes Cardiac Catheterization: No Cardiovascular Problems: Yes ([place], [place], [place]) High Cholesterol: No Congestive Heart Failure: No Diminished Hearing: No Endocrine: No Gastrointestinal Disorders: Yes GERD: Yes Headaches: Yes Hypertension: Yes Immune Disorder: No Musculoskeletal: No Neurologic: No Psychiatric: No Respiratory: Yes (ASTHMA) Integumentary: Yes (RECURRING SKIN ABSCESSES) Immunizations Current: Yes Migraines: Yes Myocardial Infarction: Yes ?: Not LMP: CURRENT : 2 Para: 1 Miscarriage: 0 : 1 Dilation and Curettage (D&C): Yes Past Surgical History Abdominal Surgery: Yes ( 04/18/06) Body Medical Devices: BRONCHITIS Section: Yes Cholecystectomy: Yes Coronary Artery Bypass Graft: No Coronary Stent: Yes (x 2 10/2013) Gynecologic Surgery: Yes (D&C 11/2007) Other Surgery: Yes Social History Alcohol Use: Yes (SOCIAL) Tobacco Use: Yes (3PPD) Substance Use: No Allergies-Medications (Allergen,Severity, Reaction): Coded Allergies: ibuprofen (Verified Adverse Reaction, Intermediate, Anaphylaxis, 02/23/17) Reported Meds & Prescriptions Reported Meds & Active Scripts Active Bactrim DS (Sulfamethoxazole-Trimethoprim) 800-160 Mg Tab 1 Tab PO BID Doxycycline Hyclate 100 Mg Cap 100 Mg PO BID Mapap Extra Strength (Acetaminophen) 500 Mg Tab 1,000 Mg PO Q4-6H PRN Ibuprofen 800 Mg Tab 800 Mg PO Q8H PRN Bactrim DS (Sulfamethoxazole-Trimethoprim) 800-160 Mg Tab 1 Tab PO BID Lortab (Hydrocodone-Acetaminophen) 5-325 Mg Tab 1 Tab PO Q6H PRN Keflex (Cephalexin) 500 Mg Cap 500 Mg PO Q6H 5 Days Proair Respiclick Inh (Albuterol Sulfate) 90 Mcg/Act Aerp 2 Puff INH Q6H PRN Review of Systems General / Constitutional: No: Fever, Chills Eyes: No: Visual changes HENT: No: Headaches Cardiovascular: No: Chest Pain or Discomfort Respiratory: No: Shortness of Breath Gastrointestinal: No: Abdominal Pain Genitourinary: No: Dysuria Musculoskeletal: No: Pain Skin: Positive Rash, Positive Lumps Neurologic: No: Weakness Psychiatric: No: Depression Endocrine: No: Polydipsia Hematologic/Lymphatic: No: Easy Bruising Physical Exam Narrative GENERAL: This is a well-nourished, well-developed patient, in no apparent distress. SKIN: Patient has thickening, scarring and erythema to the axillas. She has hidradenitis which appears to be acutely infected. Needle aspiration of the right axilla performed. HEAD: Atraumatic. Normocephalic. EYES: PERRL, EOMI, no discharge or injection. No scleral icterus. EARS: Clear NOSE: Nasal turbinates appear normal. THROAT: Mucosa pink and moist. Airway patent. NECK: Trachea midline. supple, moves head freely. LUNGS: Clear to auscultation. CV: Regular in rhythm. ABDOMEN: Soft nontender. EXT: No clubbing cyanosis or edema. Data Data Last Documented VS Vital Signs Date Time Temp Pulse Resp B/P (MAP) Pulse Ox O2 Delivery O2 Flow Rate FiO2 02/23/17 22:48 98.5 79 16 237/99 (145) 100 Room Air Orders Orders Sulfamet-Trimeth Ds 800-160 Mg (Bactrim (02/24/17 01:15) Doxycycline Liq (Vibramycin Liq) (02/24/17 01:15) Acetamin-Hydrocod 325-5 Mg ([place] 5-325 (02/24/17 01:15) Ed Discharge Order (02/24/17 01:07) MDM Medical Decision Making Medical Screen Exam Complete: Yes Emergency Medical Condition: Yes Medical Record Reviewed: Yes Differential Diagnosis MDM: High Differential diagnoses: Abscess, folliculitis, cellulitis, lymphangitis, abrasion, contact dermatitis Narrative Course Needle aspiration performed at bedside. 2 cc of pus removed. Patient given Bactrim DS, axis-100 mg and 2 Lortab 5 a grams by mouth. Procedures Procedure Narrative Needle aspiration right axilla abscess: The skin is prepped with Betadine. One percent lidocaine local. 18-gauge needle aspiration with 2 cc of purulent pus. Patient tolerates procedure well. No complications. Diagnosis Primary Impression: infected hidradenitis right axilla Patient Instructions: Narcotic given in the ED, General Instructions Additional Instructions: Rest. Elevation. keep clean and dry. Warm compresses Daily wound care with soap and water. Doxycycline and Septra DS. Follow-up with a primary care doctor in one week. Referral to records assistant or plastic surgeon for surgical removal of tissue. Return to the ER for any problems. Med/Other Pt SpecificInfo: Prescription(s) given, Wound Care Scripts Sulfamethoxazole-Trimethoprim (Bactrim DS) 800-160 Mg Tab 1 TAB PO BID for Infection, #20 TAB 0 Refills Prov: Ernesto Razo MD 02/24/17 Doxycycline Hyclate (Doxycycline Hyclate) 100 Mg Cap 100 MG PO BID for Infection, #20 CAP 0 Refills Prov: Ernesto Razo MD 02/24/17 Disposition: 01 DISCHARGE HOME Condition: Stable Jurgen Kumari Feb 24, 2017 01:11
[2017-02-24] MEDS ORDERED: SULFAMETHOXAZOLE-TRIMETHOPRIM DS 800-160 MG TAB PO ONE (01:15)
[2017-02-24] MEDS ORDERED: DOXYCYCLINE MONOHYDRATE SUSP 25 MG/5 ML 60 ML BTL PO ONE (01:15)
[2017-02-24] MEDS ORDERED: ACETAMINOPHEN/HYDROcodone 325 MG/5 MG TAB PO ONE (01:15)
[2017-02-24] MEDS ORDERED: cloNIDine HCL 0.2 MG TAB PO ONE (01:30)
[2017-02-24] MEDS ORDERED: DOXYCYCLINE HYCLATE 100 MG CAP PO ONE (01:45)
== END 2017-02-24 01:35 | disposition home or self-care (01) ==
LOC: NEPD 22:46
DX: L73.2 Hidradenitis suppurativa (principal); I10 Essential (primary) hypertension; J45.909 Unspecified asthma, uncomplicated; Z72.0 Tobacco use; Z79.01 Long term (current) use of anticoagulants
CPT/HCPCS: 10160

== ENCOUNTER 2017-05-24 06:14 | Emergency (ER) | payer MEDICAID ==
[~2017-05-24] VITALS: Ht 180.3 cm; Wt 81.5 kg
[2017-05-24 06:18] VITALS: BP 196/95; PULSE 105; RESP 16; TEMP 98.5; O2SAT 99
[2017-05-24] MEDS ORDERED: traMADol HCL 50 MG TAB PO ONE (06:45)
[2017-05-24] MEDS ORDERED: PENI500T PO (06:58)
[2017-05-24] MEDS ORDERED: TRAM50TA PO (06:58)
--- NOTE | 2017-05-24 06:58 | PD ---
HPI Chief Complaint: Oral / Dental Pain or Problem Time Seen by Provider: 06:35 Travel History International Travel<30 days: No Contact w/Intl Traveler<30days: No Traveled to known affect area: No History of Present Illness HPI Patient is a 32-year-old female who comes in complaining of tooth pain. She says the pain is in her left lower molars. She says she has had it for the past week and a half. She denies fever or chills. She says she has been taking Tylenol without relief of her symptoms. She denies any difficulty swallowing. PFSH Past Medical History Hx Anticoagulant Therapy: Yes Heart Rhythm Problems: Yes ("IRREGULAR HEART BEAT") Cancer: Yes Cardiac Catheterization: No Cardiovascular Problems: Yes ([place], [place] x2) High Cholesterol: No Congestive Heart Failure: No Diminished Hearing: No Endocrine: No Gastrointestinal Disorders: Yes GERD: Yes Headaches: Yes Hypertension: Yes Immune Disorder: No Musculoskeletal: No Neurologic: No Psychiatric: No Respiratory: Yes (ASTHMA) Integumentary: Yes (RECURRING SKIN ABSCESSES) Immunizations Current: Yes Migraines: Yes Myocardial Infarction: Yes Tetanus Vaccination: < 5 Years Influenza Vaccination: No ?: Not LMP: 05/19/17 : 2 Para: 1 Miscarriage: 0 : 1 Dilation and Curettage (D&C): Yes Past Surgical History Abdominal Surgery: Yes ( 04/18/06) Body Medical Devices: BRONCHITIS Section: Yes Cholecystectomy: Yes Coronary Artery Bypass Graft: No Coronary Stent: Yes (x 2 10/2013) Gynecologic Surgery: Yes (D&C 11/2007) Other Surgery: Yes Family History Family Myocardial Infarction: No Social History Alcohol Use: Yes (SOCIAL) Tobacco Use: Yes Substance Use: No Allergies-Medications (Allergen,Severity, Reaction): Coded Allergies: ibuprofen (Verified Adverse Reaction, Intermediate, Anaphylaxis, 02/23/17) Reported Meds & Prescriptions Reported Meds & Active Scripts Active Bactrim DS (Sulfamethoxazole-Trimethoprim) 800-160 Mg Tab 1 Tab PO BID Doxycycline Hyclate 100 Mg Cap 100 Mg PO BID Mapap Extra Strength (Acetaminophen) 500 Mg Tab 1,000 Mg PO Q4-6H PRN Ibuprofen 800 Mg Tab 800 Mg PO Q8H PRN Bactrim DS (Sulfamethoxazole-Trimethoprim) 800-160 Mg Tab 1 Tab PO BID Lortab (Hydrocodone-Acetaminophen) 5-325 Mg Tab 1 Tab PO Q6H PRN Keflex (Cephalexin) 500 Mg Cap 500 Mg PO Q6H 5 Days Proair Respiclick Inh (Albuterol Sulfate) 90 Mcg/Act Aerp 2 Puff INH Q6H PRN Review of Systems General / Constitutional: No: Fever, Chills HENT: Positive: Dental Difficulties Cardiovascular: No: Chest Pain or Discomfort Respiratory: No: Shortness of Breath Gastrointestinal: No: Nausea, Vomiting Musculoskeletal: No: Myalgias, Edema Skin: No Rash, No Change in Pigmentation Neurologic: No: Weakness, Dizziness Physical Exam Narrative GENERAL: Well-nourished, well-developed patient. SKIN: Focused skin assessment warm/dry. HEAD: Normocephalic. ENT: Broken molars on the left lower jaw. EYES: No scleral icterus. No injection or drainage. NECK: Supple, trachea midline. No JVD or lymphadenopathy. CARDIOVASCULAR: Regular rate and rhythm without murmurs, gallops, or rubs. RESPIRATORY: Breath sounds equal bilaterally. No accessory muscle use. MUSCULOSKELETAL: No cyanosis, or edema. Data Data Last Documented VS Vital Signs Date Time Temp Pulse Resp B/P (MAP) Pulse Ox O2 Delivery O2 Flow Rate FiO2 05/24/17 06:30 16 05/24/17 06:18 98.5 105 196/95 (128) 99 Orders Orders Tramadol (Ultram) (05/24/17 06:45) [facility] Medical Decision Making Medical Screen Exam Complete: Yes Emergency Medical Condition: Yes Medical Record Reviewed: Yes Differential Diagnosis Abscess versus dental caries versus dental trauma Narrative Course Patient is a 32-year-old female who comes in complaining of dental pain. Exam shows a broken tooth, no signs of abscess. Patient given a tramadol for pain. Will be discharged with prescriptions for penicillin as well as tramadol. Diagnosis Primary Impression: Pain, dental Patient Instructions: Dental Abscess (ED), General Instructions Additional Instructions: Follow-up with the dentist. Take all of your antibiotic. Return to the ED as needed for any worsening symptoms. Scripts Tramadol (Tramadol) 50 Mg Tab 50 MG PO Q6H Y for PAIN, #10 TAB 0 Refills Prov: Amee Nichole MD 05/24/17 Penicillin V Potassium (Penicillin V Potassium) 500 Mg Tab 500 MG PO Q6H for Infection for 7 Days, #28 TAB 0 Refills Prov: Amee Nichole MD 05/24/17 Disposition: 01 DISCHARGE HOME Condition: Stable Amee Nichole MD May 24, 2017 06:58
== END 2017-05-24 07:15 | disposition home or self-care (01) ==
LOC: NEPC 06:14
DX: K08.89 Other specified disorders of teeth and supporting structures (principal); I10 Essential (primary) hypertension; J45.909 Unspecified asthma, uncomplicated; K21.9 Gastro-esophageal reflux disease without esophagitis; I25.2 Old myocardial infarction; Z95.5 Presence of coronary angioplasty implant and graft; Z72.0 Tobacco use
CPT/HCPCS: 99283

== ENCOUNTER 2017-06-21 00:22 | Emergency (ER) | payer MEDICAID ==
[~2017-06-21] VITALS: Ht 180.3 cm; Wt 84.0 kg
[~2017-06-21 00:22] MED LIST changes: +PENI500T PO; +TRAM50TA PO
[2017-06-21 00:54] VITALS: BP 168/100; PULSE 75; RESP 16; TEMP 98.3; O2SAT 100
[2017-06-21] MEDS ORDERED: AMOXICILLIN/CLAVULANATE K 875 MG TAB PO ONE (01:15)
[2017-06-21] MEDS ORDERED: ACETAMINOPHEN/HYDROcodone 325 MG/5 MG TAB PO ONE (01:15)
[2017-06-21] MEDS ORDERED: KETOROLAC TROMETHAMINE 60 MG/2 ML (IM) VIAL IM ONE (01:15)
[2017-06-21] MEDS ORDERED: HYDR-3516 PO (01:18)
[2017-06-21] MEDS ORDERED: AUGM875T3 PO (01:18)
--- NOTE | 2017-06-21 01:18 | PD ---
HPI Chief Complaint: ENT Complaint Time Seen by Provider: 01:04 Travel History International Travel<30 days: No Contact w/Intl Traveler<30days: No Traveled to known affect area: No History of Present Illness HPI 32-year-old female here for evaluation of dental pain and bilateral ear pain. The patient reports that she was seen in the emergency department about a month ago and was diagnosed with a dental infection. She took Pen-Vee K which seemed to help her symptoms, however they returned a couple of weeks ago. Pain is described as pressure, moderate to severe. She describes some muffled hearing. She denies fevers or chills. No difficulty swallowing. PFSH Past Medical History Hx Anticoagulant Therapy: Yes Heart Rhythm Problems: Yes ("IRREGULAR HEART BEAT") Cancer: Yes Cardiac Catheterization: No Cardiovascular Problems: Yes (Stent x2) High Cholesterol: No Congestive Heart Failure: No Diminished Hearing: No Endocrine: No Gastrointestinal Disorders: Yes GERD: Yes Headaches: Yes Hypertension: Yes Immune Disorder: No Musculoskeletal: No Neurologic: No Psychiatric: No Respiratory: Yes (ASTHMA) Integumentary: Yes (RECURRING SKIN ABSCESSES) Immunizations Current: Yes Migraines: Yes Myocardial Infarction: Yes Tetanus Vaccination: Unknown Influenza Vaccination: No ?: Not LMP: 06/15/17 : 2 Para: 1 Miscarriage: 0 : 1 Dilation and Curettage (D&C): Yes Past Surgical History Abdominal Surgery: Yes ( 04/18/06) Body Medical Devices: BRONCHITIS Section: Yes Cholecystectomy: Yes Coronary Artery Bypass Graft: No Coronary Stent: Yes (x 2 10/2013) Gynecologic Surgery: Yes (D&C 11/2007) Other Surgery: Yes Social History Alcohol Use: Yes (SOCIAL) Tobacco Use: Yes (2PPD) Substance Use: No Allergies-Medications (Allergen,Severity, Reaction): Coded Allergies: aspirin (Verified Allergy, Unknown, 06/21/17) ibuprofen (Verified Adverse Reaction, Intermediate, Anaphylaxis, 02/23/17) Reported Meds & Prescriptions Reported Meds & Active Scripts Active Tramadol (Tramadol HCl) 50 Mg Tab 50 Mg PO Q6H PRN Penicillin V Potassium 500 Mg Tab 500 Mg PO Q6H 7 Days Bactrim DS (Sulfamethoxazole-Trimethoprim) 800-160 Mg Tab 1 Tab PO BID Doxycycline Hyclate 100 Mg Cap 100 Mg PO BID Mapap Extra Strength (Acetaminophen) 500 Mg Tab 1,000 Mg PO Q4-6H PRN Ibuprofen 800 Mg Tab 800 Mg PO Q8H PRN Bactrim DS (Sulfamethoxazole-Trimethoprim) 800-160 Mg Tab 1 Tab PO BID Lortab (Hydrocodone-Acetaminophen) 5-325 Mg Tab 1 Tab PO Q6H PRN Keflex (Cephalexin) 500 Mg Cap 500 Mg PO Q6H 5 Days Proair Respiclick Inh (Albuterol Sulfate) 90 Mcg/Act Aerp 2 Puff INH Q6H PRN Review of Systems Except as stated in HPI: all other systems reviewed are Neg Physical Exam Narrative GENERAL: Well-developed, well-nourished, comfortable, no apparent distress. SKIN: Focused skin assessment warm/dry. No rash. HEAD: Atraumatic. Normocephalic. EYES: Pupils equal and round. No scleral icterus. No injection or drainage. ENT: No nasal bleeding or discharge. Mucous membranes pink and moist. Normal pharynx. Very poor dentition with several cavities and several missing molars. No fluctuance or induration. No trismus. No drooling or stridor. Bilateral tympanic membranes and external auditory canals are normal. NECK: Trachea midline. No JVD. No nuchal rigidity. CARDIOVASCULAR: Regular rate and rhythm. RESPIRATORY: No accessory muscle use. Clear to auscultation. Breath sounds equal bilaterally. GASTROINTESTINAL: Abdomen soft, non-tender, nondistended. MUSCULOSKELETAL: No obvious deformities. No clubbing. No cyanosis. No edema. NEUROLOGICAL: Awake and alert. No obvious cranial nerve deficits. Motor grossly within normal limits. Normal speech. PSYCHIATRIC: Appropriate mood and affect; insight and judgment normal. Data Data Last Documented VS Vital Signs Date Time Temp Pulse Resp B/P (MAP) Pulse Ox O2 Delivery O2 Flow Rate FiO2 06/21/17 00:54 98.3 75 16 168/100 (122) 100 Orders Orders Ketorolac Inj (Toradol Inj) (06/21/17 01:15) Amoxicil-Clavulanate (Augmentin) (06/21/17 01:15) Acetamin-Hydrocod 325-5 Mg ([place] 5-325 (06/21/17 01:15) MDM Medical Decision Making Medical Screen Exam Complete: Yes Emergency Medical Condition: Yes Differential Diagnosis Dental caries, otitis media, sinusitis Narrative Course This is a 32-year-old female with history of hypertension here for evaluation of dental pain and bilateral ear pain. Patient has very poor dentition with several missing teeth and several cavities. There is no drooling or stridor on exam. No trismus. Bilateral tympanic membranes and external auditory canals are normal. She has an appointment with a dentist in one week. There is no cervical lymphadenopathy. At this point my plan is to start her on Augmentin and to provide her an IM injection of Toradol here. She is stable for discharge home with outpatient follow-up. She was advised when to return to the emergency department. She verbalizes understanding and agreement with plan. Diagnosis Primary Impression: Dental caries Referrals: Dentist 1 week Primary Care Physician 3 days Additional Instructions: Follow-up with your dentist next week as scheduled. Return to the emergency department for worsening symptoms or any other concerns. Scripts Hydrocodone-Acetaminophen (Hydrocodone-Acetaminophen) 5-325 mg Tab 1 TAB PO Q6H Y for PAIN, #7 TAB 0 Refills Prov: Ernesto Razo MD 06/21/17 Amoxicillin-Clavulanate (Augmentin) 875-125 Mg Tab 1 TAB PO BID for Infection for 7 Days, #14 TAB 0 Refills Prov: Ernesto Razo MD 06/21/17 Disposition: 01 DISCHARGE HOME Condition: Stable Ernesto Razo MD Jun 21, 2017 01:18
== END 2017-06-21 02:07 | disposition home or self-care (01) ==
LOC: NEPE 00:22
DX: K02.9 Dental caries, unspecified (principal); I10 Essential (primary) hypertension; J45.909 Unspecified asthma, uncomplicated; K21.9 Gastro-esophageal reflux disease without esophagitis; F17.210 Nicotine dependence, cigarettes, uncomplicated; Z88.8 Allergy status to other drugs, medicaments and biological substances; Z79.899 Other long term (current) drug therapy
CPT/HCPCS: 96372; 99283; J1885

== ENCOUNTER 2017-06-29 08:19 | Emergency (ER) | payer MEDICAID ==
[~2017-06-29] VITALS: Ht 180.3 cm; Wt 81.5 kg
[~2017-06-29 08:19] MED LIST changes: +AUGM875T3 PO; +HYDR-3516 PO
[2017-06-29 08:49] VITALS: BP 191/84; PULSE 61; RESP 18; TEMP 98.7; O2SAT 100
--- NOTE | 2017-06-29 09:32 | PD ---
HPI Chief Complaint: Oral / Dental Pain or Problem Time Seen by Provider: 08:55 Travel History International Travel<30 days: No Contact w/Intl Traveler<30days: No Traveled to known affect area: No History of Present Illness HPI 32-year-old -[place] female presents emergency department with ongoing bleeding from with some tooth removal site on the left upper jaw #16 tooth, which was performed yesterday. Patient currently is on antibiotics, as well as Lortab 7.5 mg. Patient is mainly concerned about the bleeding. Patient also has postnasal drip and cough with left-sided sinus tenderness. She denies fever , chills, or other symptoms. She is unable to take ibuprofen or aspirin due to allergy. She has not been icing the area. She has not been doing salt water rinses. Pain is bearable at 6 out of 10. PFSH Past Medical History Hx Anticoagulant Therapy: No Heart Rhythm Problems: Yes ("IRREGULAR HEART BEAT") Cancer: Yes Cardiac Catheterization: No Cardiovascular Problems: No High Cholesterol: No Chemotherapy: No Congestive Heart Failure: No Cerebrovascular Accident: No Diabetes: No Diminished Hearing: No Endocrine: No Gastrointestinal Disorders: Yes GERD: Yes Headaches: Yes Hypertension: Yes Immune Disorder: No Musculoskeletal: No Neurologic: No Psychiatric: No Respiratory: No Integumentary: Yes (RECURRING SKIN ABSCESSES) Immunizations Current: Yes Migraines: Yes Myocardial Infarction: Yes ?: Unknown : 2 Para: 1 Miscarriage: 0 : 1 Dilation and Curettage (D&C): Yes Past Surgical History Abdominal Surgery: Yes ( 04/18/06) Body Medical Devices: BRONCHITIS Section: Yes Cholecystectomy: Yes Coronary Artery Bypass Graft: No Coronary Stent: Yes (x 2 10/2013) Gynecologic Surgery: Yes (D&C 11/2007) Hysterectomy: No Other Surgery: Yes Social History Alcohol Use: Yes (SOCIAL) Tobacco Use: Yes (2PPD) Substance Use: No Allergies-Medications (Allergen,Severity, Reaction): Coded Allergies: aspirin (Verified Allergy, Unknown, 06/21/17) ibuprofen (Verified Adverse Reaction, Intermediate, Anaphylaxis, 02/23/17) Reported Meds & Prescriptions Reported Meds & Active Scripts Active Hydrocodone-Acetaminophen 5-325 mg Tab 1 Tab PO Q6H PRN Augmentin (Amoxicillin-Clavulanate) 875-125 Mg Tab 1 Tab PO BID 7 Days Tramadol (Tramadol HCl) 50 Mg Tab 50 Mg PO Q6H PRN Penicillin V Potassium 500 Mg Tab 500 Mg PO Q6H 7 Days Bactrim DS (Sulfamethoxazole-Trimethoprim) 800-160 Mg Tab 1 Tab PO BID Doxycycline Hyclate 100 Mg Cap 100 Mg PO BID Mapap Extra Strength (Acetaminophen) 500 Mg Tab 1,000 Mg PO Q4-6H PRN Ibuprofen 800 Mg Tab 800 Mg PO Q8H PRN Bactrim DS (Sulfamethoxazole-Trimethoprim) 800-160 Mg Tab 1 Tab PO BID Keflex (Cephalexin) 500 Mg Cap 500 Mg PO Q6H 5 Days Proair Respiclick Inh (Albuterol Sulfate) 90 Mcg/Act Aerp 2 Puff INH Q6H PRN Review of Systems Except as stated in HPI: all other systems reviewed are Neg General / Constitutional: No: Fever Eyes: No: Visual changes HENT: Positive: Rhinorrhea, Congestion, Gingival Bleeding, Dental Difficulties , No: Headaches, Vertigo, Lightheadedness, Sore Throat, Rhinitis, Nosebleed, Neck Stiffness, Neck Pain, Earache Cardiovascular: No: Chest Pain or Discomfort Respiratory: No: Shortness of Breath Gastrointestinal: No: Abdominal Pain Genitourinary: No: Dysuria Musculoskeletal: No: Pain Skin: No Rash Neurologic: No: Weakness Psychiatric: No: Depression Endocrine: No: Polydipsia Hematologic/Lymphatic: No: Easy Bruising Physical Exam Narrative GENERAL: Patient appears in mild distress per SKIN: Warm and dry. Normal color. Normal turgor. HEAD: Atraumatic. Normocephalic. No significant maxillary swelling is noted. Patient is tender over the left maxillary and frontal sinuses per EYES: Pupils equal and round. No scleral icterus. No injection or drainage. ENT: No nasal bleeding or discharge. Mucous membranes pink and moist. Patient has mild bleeding from the left upper posterior tooth socket of the 16th tooth. There is no obvious signs of swelling or abscess. Pharynx is clear. Airways patent. TMs are clear bilaterally. NECK: Trachea midline. Supple and nontender CARDIOVASCULAR: Regular rate and rhythm. RESPIRATORY: No accessory muscle use. Clear to auscultation. Breath sounds equal bilaterally. MUSCULOSKELETAL: Extremities without clubbing, cyanosis, or edema. No obvious deformities. NEUROLOGICAL: Awake and alert. No obvious cranial nerve deficits. Motor grossly within normal limits. Five out of 5 muscle strength in the arms and legs. Normal speech. PSYCHIATRIC: Appropriate mood and affect; insight and judgment normal. Data Data Last Documented VS Vital Signs Date Time Temp Pulse Resp B/P (MAP) Pulse Ox O2 Delivery O2 Flow Rate FiO2 06/29/17 08:49 98.7 61 18 191/84 (119) 100 Orders Orders Ed Discharge Order (06/29/17 09:33) MDM Medical Decision Making Medical Screen Exam Complete: Yes Emergency Medical Condition: Yes Differential Diagnosis [place] tooth removal. Interval bleeding. Sinus tenderness. Narrative Course Patient is medically stable at time of exam. Discussed with patient that she needs to allow the bleeding to slow naturally. Recommend frequent icing to the area. Recommend Sudafed or Zyrtec the for sinus congestion. Patient can continue to use gauze pads and soft diet. Recommend Peridex oral rinse or saline oral rinses frequently through the day. Patient to continue the antibiotics as previously prescribed. Patient to continue Lortab as needed for pain. Patient to return if symptoms worsen as needed. Diagnosis Primary Impression: Pain, dental Additional Impression: Gingival bleeding Referrals: Dentist Patient Instructions: General Instructions Additional Instructions: Discussed with patient that she needs to allow the bleeding to slow naturally. Recommend frequent icing to the area. Recommend Sudafed or Zyrtec the for sinus congestion. Patient can continue to use gauze pads and soft diet. Recommend Peridex oral rinse or saline oral rinses frequently through the day. Patient to continue the antibiotics as previously prescribed. Patient to continue Lortab as needed for pain. Patient to return if symptoms worsen as needed. Med/Other Pt SpecificInfo: No Change to Meds, No Meds Exist/No RX given Disposition: 01 DISCHARGE HOME Condition: Stable Diomedes Velasquez Jun 29, 2017 09:32
== END 2017-06-29 09:50 | disposition home or self-care (01) ==
LOC: NEPD 08:19
DX: K08.89 Other specified disorders of teeth and supporting structures (principal); K06.8 Other specified disorders of gingiva and edentulous alveolar ridge; K21.9 Gastro-esophageal reflux disease without esophagitis; I10 Essential (primary) hypertension; I25.2 Old myocardial infarction; F17.200 Nicotine dependence, unspecified, uncomplicated; Z88.6 Allergy status to analgesic agent; Z79.899 Other long term (current) drug therapy
CPT/HCPCS: 99282

== ENCOUNTER 2017-10-03 14:32 | Emergency (ER) | payer SELFPAY ==
[~2017-10-03 14:32] MED LIST changes: -HYDR-3533 PO
[2017-10-03 14:51] VITALS: BP_SYST 121; BP_SYST 212; BP_DIAS 100; PULSE 74; RESP 17; TEMP 98.9; O2SAT 100
[2017-10-03] MEDS ORDERED: SODIUM CHLORIDE 0.9% FLUSH 10 ML FLUSH IV FLUSH PRN (16:30)
[2017-10-03 17:14] LABS: AUTOMATED NEUTROPHIL # 8.1 TH/MM3 (1.8-7.7); BASOPHIL # 0.1 TH/MM3 (0-0.2); BASOPHIL % 0.9 % (0.0-2.0); EOSINOPHIL # 0.1 TH/MM3 (0-0.4); EOSINOPHIL % 0.9 % (0.0-4.0); HEMATOCRIT 39.6 % (35.0-46.0); LYMPH % 23.3 % (9.0-44.0); LYMPHOCYTE # 2.9 TH/MM3 (1.0-4.8); MEAN CELL VOLUME 96.8 FL (80.0-100.0); MEAN CORPUSCULAR HEMOGLOBIN 34.2 PG (27.0-34.0); MEAN CORPUSCULAR HGB CONC 35.3 % (32.0-36.0); MEAN PLATELET VOLUME 8.8 FL (7.0-11.0); MONO % 8.9 % (0.0-8.0); MONOCYTE # 1.1 TH/MM3 (0-0.9); PLATELET COUNT 273 TH/MM3 (150-450); RED BLOOD COUNT 4.09 MIL/MM3 (4.00-5.30); WHITE BLOOD COUNT 12.3 TH/MM3 (4.0-11.0)
--- NOTE | 2017-10-03 17:29 | PD ---
HPI Chief Complaint: Back/ Neck Pain or Injury Time Seen by Provider: 17:10 Travel History International Travel<30 days: No Contact w/Intl Traveler<30days: No Traveled to known affect area: No History of Present Illness HPI The patient is a 32-year-old female who presents to the emergency department for low back pain. The patient notes a 1-1/2 week history of low back pain located right lower aspect of the back. The back pain is worse with movement, states is exacerbated by turning left, turning right, flexion, and extension. She does find some relief when she lays on her stomach , also has mild relief when lying on her side with a pillow between her knees. The pain occasionally radiates into the right buttock. She denies any weakness or numbness of lower extremities. She denies any urinary incontinence, urinary retention, dysuria, frequency, urgency, hematuria, vaginal discharge, or vaginal bleeding. The patient's last menstrual cycle was at the end of August, she doubts . She denies any trauma to the back, but does do a lot of bending and twisting at work. The patient has been taken Tylenol at home with minimal relief of her pain. The patient's pain got worse today when she was running in the house, away from a mouse, and heard a "pop "in her back. The patient denies any numbness or tingling of the lower extremities. Symptoms are moderate. PFSH Past Medical History Hx Anticoagulant Therapy: No Heart Rhythm Problems: Yes ("IRREGULAR HEART BEAT") Cancer: Yes Cardiac Catheterization: No Cardiovascular Problems: Yes ([place]) High Cholesterol: No Chemotherapy: No Congestive Heart Failure: No Cerebrovascular Accident: No Diabetes: No Diminished Hearing: No Endocrine: No Gastrointestinal Disorders: Yes GERD: Yes Headaches: Yes Hypertension: Yes Immune Disorder: No Musculoskeletal: No Neurologic: No Psychiatric: No Respiratory: No Integumentary: Yes (RECURRING SKIN ABSCESSES) Immunizations Current: Yes Migraines: Yes Myocardial Infarction: Yes ?: Not LMP: 09/19/17 : 2 Para: 1 Miscarriage: 0 : 1 Dilation and Curettage (D&C): Yes Past Surgical History Abdominal Surgery: Yes ( 04/18/06) Body Medical Devices: BRONCHITIS Section: Yes Cholecystectomy: Yes Coronary Artery Bypass Graft: No Coronary Stent: Yes (x 2 10/2013) Gynecologic Surgery: Yes (D&C 11/2007) Hysterectomy: No Other Surgery: Yes Social History Alcohol Use: Yes (SOCIAL) Tobacco Use: Yes (1/2PPD) Substance Use: No Allergies-Medications (Allergen,Severity, Reaction): Coded Allergies: aspirin (Verified Allergy, Unknown, 10/03/17) ibuprofen (Verified Adverse Reaction, Intermediate, Anaphylaxis, 10/03/17) Reported Meds & Prescriptions Reported Meds & Active Scripts Active Hydrocodone-Acetaminophen 5-325 mg Tab 1 Tab PO Q6H PRN Augmentin (Amoxicillin-Clavulanate) 875-125 Mg Tab 1 Tab PO BID 7 Days Tramadol (Tramadol HCl) 50 Mg Tab 50 Mg PO Q6H PRN Penicillin V Potassium 500 Mg Tab 500 Mg PO Q6H 7 Days Bactrim DS (Sulfamethoxazole-Trimethoprim) 800-160 Mg Tab 1 Tab PO BID Doxycycline Hyclate 100 Mg Cap 100 Mg PO BID Mapap Extra Strength (Acetaminophen) 500 Mg Tab 1,000 Mg PO Q4-6H PRN Ibuprofen 800 Mg Tab 800 Mg PO Q8H PRN Bactrim DS (Sulfamethoxazole-Trimethoprim) 800-160 Mg Tab 1 Tab PO BID Keflex (Cephalexin) 500 Mg Cap 500 Mg PO Q6H 5 Days Proair Respiclick Inh (Albuterol Sulfate) 90 Mcg/Act Aerp 2 Puff INH Q6H PRN Review of Systems Except as stated in HPI: all other systems reviewed are Neg General / Constitutional: No: Fever Cardiovascular: No: Chest Pain or Discomfort Respiratory: No: Shortness of Breath Gastrointestinal: No: Nausea, Vomiting, Abdominal Pain Genitourinary: No: Urgency, Frequency, Dysuria, Hematuria, Incontinence Musculoskeletal: Positive: Pain, No: Weakness Neurologic: No: Dizziness, Focal Abnormalities, Paresthesia Physical Exam Narrative GENERAL: Awake, alert, pleasant 32-year-old female who appears her stated age and is in no acute respiratory distress. SKIN: Focused skin assessment warm/dry. HEAD: Atraumatic. Normocephalic. EYES: Pupils equal and round. No scleral icterus. No injection or drainage. ENT: No nasal bleeding or discharge. Mucous membranes pink and moist. NECK: Trachea midline. No JVD. CARDIOVASCULAR: Regular rate and rhythm. No murmur appreciated. RESPIRATORY: No accessory muscle use. Clear to auscultation. Breath sounds equal bilaterally. GASTROINTESTINAL: Abdomen soft, non-tender, nondistended. Back: Tenderness to palpation of the right sacroiliac. No tenderness of the midline of the thoracic or lumbar vertebrae. MUSCULOSKELETAL: No obvious deformities. No clubbing. No cyanosis. No edema. Flexion of the great toes bilateral is 5 out of 5. Plantarflexion bilateral is 5 out of 5. Extension of the knees bilateral 5 out of 5. Flexion left hip is 5 out of 5, right is 4+/5. NEUROLOGICAL: Awake and alert. No obvious cranial nerve deficits. Motor grossly within normal limits. Normal speech. Sensation is symmetric on the lower extremities bilaterally. No focal deficits. PSYCHIATRIC: Appropriate mood and affect; insight and judgment normal. Data Data Last Documented VS Vital Signs Date Time Temp Pulse Resp B/P (MAP) Pulse Ox O2 Delivery O2 Flow Rate FiO2 10/03/17 14:51 98.9 74 17 212/100 (137) 100 Orders Orders Complete Blood Count With Diff (10/03/17 16:20) Comprehensive Metabolic Panel (10/03/17 16:20) Lipase (10/03/17 16:20) Urinalysis - C+S If Indicated (10/03/17 16:20) Iv Access Insert/Monitor (10/03/17 16:20) Sodium Chloride 0.9% Flush (Ns Flush) (10/03/17 16:30) Ed Urine Pregnancytest Poc (10/03/17 16:20) Electrocardiogram (10/03/17 15:08) Morphine Inj (Morphine Inj) (10/03/17 17:30) Metoclopramide Inj (Reglan Inj) (10/03/17 17:30) Dexamethasone Inj (Decadron Inj) (10/03/17 17:30) Sodium Chlorid 0.9% 500 Ml Inj (Ns 500 M (10/03/17 17:30) Spine, Lumbar - Ltd (Ap & Lat) (10/03/17 ) Labs Laboratory Tests Test 10/03/17 15:12 10/03/17 16:50 Urine Color YELLOW Urine Turbidity CLEAR Urine pH 7.0 Urine Specific Sims 1.014 Urine Protein NEG mg/dL Urine Glucose (UA) NEG mg/dL Urine Ketones NEG mg/dL Urine Occult Blood NEG Urine Nitrite NEG Urine Bilirubin NEG Urine Leukocyte Esterase NEG Urine RBC LESS THAN 1 /hpf Urine WBC LESS THAN 1 /hpf Urine Squamous Epithelial Cells <1 /hpf Microscopic Urinalysis Comment CULT NOT INDICATED White Blood Count 12.3 TH/MM3 Red Blood Count 4.09 MIL/MM3 Hemoglobin 14.0 GM/DL Hematocrit 39.6 % Mean Corpuscular Volume 96.8 FL Mean Corpuscular Hemoglobin 34.2 PG Mean Corpuscular Hemoglobin Concent 35.3 % Red Cell Distribution Width 13.0 % Platelet Count 273 TH/MM3 Mean Platelet Volume 8.8 FL Neutrophils (%) (Auto) 66.0 % Lymphocytes (%) (Auto) 23.3 % Monocytes (%) (Auto) 8.9 % Eosinophils (%) (Auto) 0.9 % Basophils (%) (Auto) 0.9 % Neutrophils # (Auto) 8.1 TH/MM3 Lymphocytes # (Auto) 2.9 TH/MM3 Monocytes # (Auto) 1.1 TH/MM3 Eosinophils # (Auto) 0.1 TH/MM3 Basophils # (Auto) 0.1 TH/MM3 CBC Comment DIFF FINAL Differential Comment Blood Urea Nitrogen 13 MG/DL Creatinine 0.93 MG/DL Random Glucose 92 MG/DL Total Protein 7.5 GM/DL Albumin 4.0 GM/DL Calcium Level 9.2 MG/DL Alkaline Phosphatase 53 U/L Aspartate Amino Transf (AST/SGOT) 14 U/L Alanine Aminotransferase (ALT/SGPT) 17 U/L Total Bilirubin 0.5 MG/DL Sodium Level 139 MEQ/L Potassium Level 3.9 MEQ/L Chloride Level 107 MEQ/L Carbon Dioxide Level 22.3 MEQ/L Anion Gap 10 MEQ/L Estimat Glomerular Filtration Rate 84 ML/MIN Lipase 147 U/L [facility] Medical Decision Making Medical Screen Exam Complete: Yes Emergency Medical Condition: Yes Medical Record Reviewed: Yes Interpretation(s) Last Impressions Lumbar Spine X-Ray 10/03/17 0000 Signed Impressions: CONCLUSION: Negative examination. Laboratory Tests Test 10/03/17 15:12 10/03/17 16:50 Urine Color YELLOW Urine Turbidity CLEAR Urine pH 7.0 Urine Specific Sims 1.014 Urine Protein NEG mg/dL Urine Glucose (UA) NEG mg/dL Urine Ketones NEG mg/dL Urine Occult Blood NEG Urine Nitrite NEG Urine Bilirubin NEG Urine Leukocyte Esterase NEG Urine RBC LESS THAN 1 /hpf Urine WBC LESS THAN 1 /hpf Urine Squamous Epithelial Cells <1 /hpf Microscopic Urinalysis Comment CULT NOT INDICATED White Blood Count 12.3 TH/MM3 Red Blood Count 4.09 MIL/MM3 Hemoglobin 14.0 GM/DL Hematocrit 39.6 % Mean Corpuscular Volume 96.8 FL Mean Corpuscular Hemoglobin 34.2 PG Mean Corpuscular Hemoglobin Concent 35.3 % Red Cell Distribution Width 13.0 % Platelet Count 273 TH/MM3 Mean Platelet Volume 8.8 FL Neutrophils (%) (Auto) 66.0 % Lymphocytes (%) (Auto) 23.3 % Monocytes (%) (Auto) 8.9 % Eosinophils (%) (Auto) 0.9 % Basophils (%) (Auto) 0.9 % Neutrophils # (Auto) 8.1 TH/MM3 Lymphocytes # (Auto) 2.9 TH/MM3 Monocytes # (Auto) 1.1 TH/MM3 Eosinophils # (Auto) 0.1 TH/MM3 Basophils # (Auto) 0.1 TH/MM3 CBC Comment DIFF FINAL Differential Comment Blood Urea Nitrogen 13 MG/DL Creatinine 0.93 MG/DL Random Glucose 92 MG/DL Total Protein 7.5 GM/DL Albumin 4.0 GM/DL Calcium Level 9.2 MG/DL Alkaline Phosphatase 53 U/L Aspartate Amino Transf (AST/SGOT) 14 U/L Alanine Aminotransferase (ALT/SGPT) 17 U/L Total Bilirubin 0.5 MG/DL Sodium Level 139 MEQ/L Potassium Level 3.9 MEQ/L Chloride Level 107 MEQ/L Carbon Dioxide Level 22.3 MEQ/L Anion Gap 10 MEQ/L Estimat Glomerular Filtration Rate 84 ML/MIN Lipase 147 U/L Differential Diagnosis Differential diagnosis includes sacroiliitis, low back strain, herniated disc, spinal stenosis, back pain with radiculopathy, spondylolisthesis, occult compression fracture, UTI, ectopic , nephrolithiasis. Narrative Course Labs were drawn and sent in triage by nursing staff. Upon evaluation the patient had an IV placed and was administer morphine, Reglan, and Decadron. She is allergic to nonsteroidal anti-inflammatories and is currently on Plavix for history of previous CAD with [place]. 2 view lumbar x-ray was evaluated for possible spondylolisthesis. Bedside UA test was negative. UA is negative. White count was minimally elevated, LFTs and lipase are unremarkable. X-rays unremarkable. The patient was reevaluated at 6:48 PM. The patient's pain has significantly improved. She will be provided steroids, muscle relaxers, and pain medications. She will be provided a work excuse for 2 days. She is advised to follow-up with a primary physician and return if symptoms worsen or progress. Diagnosis Primary Impression: Back pain Qualified Codes: M54.5 - Low back pain Patient Instructions: General Instructions, Narcotic given in the ED Additional Instructions: Medications as directed. Work excuse for 3 days. Ice and/or heat to the affected area. No heavy lifting. Follow-up with her primary physician. No driving or drinking on narcotics. Med/Other Pt SpecificInfo: Prescription(s) given Scripts Hydrocodone-Acetaminophen ([place]) 5 Mg-325 Mg Tab 1 TAB PO Q6H Y for PAIN, #12 TAB 0 Refills Prov: Arun Morton MD 10/03/17 Cyclobenzaprine (Flexeril) 10 Mg Tab 10 MG PO TID for Muscle Spasm for 7 Days, #21 TAB 0 Refills Prov: Arun Morton MD 10/03/17 Methylprednisolone Dosepak (Medrol Dosepak) 4 Mg Dspk 4 MG PO DIRECTED, #1 DSPK 0 Refills Per Pharmacist direction Prov: Arun Morton MD 10/03/17 Disposition: 01 DISCHARGE HOME Condition: Stable Arun Morton MD Oct 03, 2017 17:29
[2017-10-03] MEDS ORDERED: MORPHINE SULFATE 4 MG/ML INJ IV PUSH ONE (17:30)
[2017-10-03] MEDS ORDERED: DEXAMETHASONE SOD PHOS 4 MG/ML VIAL IV PUSH ONE (17:30)
[2017-10-03] MEDS ORDERED: METOCLOPRAMIDE HCL 10 MG/2 ML VIAL IV PUSH ONE (17:30)
[2017-10-03] MEDS ORDERED: SODIUM CHLORID 0.9% 500 ML INJ 500 ML IV ONE (17:30)
[2017-10-03 17:31] LABS: ALT (GPT) 17 U/L (10-53)
[2017-10-03 17:33] LABS: ALKALINE PHOSPHATASE 53 U/L (45-117); TOTAL BILIRUBIN ADULT 0.5 MG/DL (0.2-1.0); TOTAL PROTEIN 7.5 GM/DL (6.4-8.2)
--- NOTE | 2017-10-03 17:52 | RADRPT ---
EXAM DATE: 10/03/2017 5:40 PM EDT AGE/SEX: 32 years / Female INDICATIONS: Lower back pain. CLINICAL DATA: This is the patient's initial encounter. Patient reports that signs and symptoms have been present for 1 week and indicates a pain score of 10/10. MEDICAL/SURGICAL HISTORY: None. None. COMPARISON: No prior exams available for comparison. FINDINGS: The vertebral bodies are in normal alignment without evidence of compression deformity Bone density is normal for age. Soft tissues are grossly intact. CONCLUSION: Negative examination. Electronically signed by: Lev Rowe MD 10/03/2017 5:51 PM EDT
[2017-10-03 18:10] LABS: AST (GOT) 14 U/L (15-37); BICARBONATE 22.3 MEQ/L (21.0-32.0); BLOOD UREA NITROGEN 13 MG/DL (7-18); CALCIUM 9.2 MG/DL (8.5-10.1); CHLORIDE 107 MEQ/L (98-107); CREATININE 0.93 MG/DL (0.50-1.00); GLOMERULAR FILTRATION RATE 84 ML/MIN (>89); GLUCOSE,RANDOM 92 MG/DL (74-106); SODIUM (NA) 139 MEQ/L (136-145)
[2017-10-03 18:15] LABS: BILIRUBIN, URINE NEG (NEG); BLOOD, URINE NEG (NEG); GLUCOSE,URINE NEG (NEG); KETONE, URINE NEG (NEG); NITRITE,URINE NEG (NEG); SQUAMOUS EPITHELIAL CELL URINE <1 /hpf (0-5); URINE COLOR YELLOW (YELLW/STRAW); URINE LEUKOCYTE ESTERASE NEG (NEG)
[2017-10-03] MEDS ORDERED: CYCL10TA PO (18:53)
[2017-10-03] MEDS ORDERED: NORC5TAB PO (18:53)
[2017-10-03] MEDS ORDERED: MEDR4PAK PO (18:53)
--- NOTE | 2017-10-03 20:54 | EKG ---
Date Performed: 10/03/2017 Time Performed: 15:08:08 PTAGE: 32 years EKG: Sinus rhythm WITH FIRST DEGREE AV BLOCK NONSPECIFIC T-WAVE ABNORMALITY ABNORMAL ECG NO PREVIOUS TRACING DOCTOR: David Das Interpretating Date/Time 10/03/2017 20:52:32
== END 2017-10-03 19:52 | disposition home or self-care (01) ==
LOC: NEPD 14:32
DX: M54.5 Low back pain (principal); I44.0 Atrioventricular block, first degree; X58.XXXA Exposure to other specified factors, initial encounter; Y92.009 Unspecified place in unspecified non-institutional (private) residence as the place of occurrence of the external cause; I10 Essential (primary) hypertension; I25.2 Old myocardial infarction; I25.10 Atherosclerotic heart disease of native coronary artery without angina pectoris; K21.9 Gastro-esophageal reflux disease without esophagitis; F17.210 Nicotine dependence, cigarettes, uncomplicated; Z95.5 Presence of coronary angioplasty implant and graft; Z88.6 Allergy status to analgesic agent; Z79.2 Long term (current) use of antibiotics; Z79.02 Long term (current) use of antithrombotics/antiplatelets; Z79.899 Other long term (current) drug therapy
CPT/HCPCS: 72100; 80053; 81001; 83690; 84703; 85025; 93005; 96361; 96374; 96375; 99285; J1100; J2270; J2765; J7040